=== PATIENT | male | born 1950 | race Caucasian/White ===

== ENCOUNTER 2018-11-08 15:17 | Emergency (ER) | payer OTHER, MEDICARE ==
--- NOTE | 2018-11-08 15:48 | ER Document Report ---
ED Medical Screen (RME) - General Chief Complaint: Leg Injury Stated Complaint: RIGHT LEG PAIN Time Seen by Provider: 11/08/18 15:31 Mode of Arrival: Ambulatory Information source: Patient Notes: This 68-year-old male presents with right lower leg pain and swelling and ecchymosis. He reports on Friday he was walking backwards at work carrying some furniture when he fell in the furniture and landed on his leg. Patient is on Aggrastat for history of a stroke. Patient right lower leg has an area of swelling to palpate warmth, leg is warmer than the left leg with ecchymosis to his foot. Patient reports sharp pains when he walks. Patient has large varicose veins I have greeted and performed a rapid initial assessment of this patient. A comprehensive ED assessment and evaluation of the patient, analysis of test results and completion of the medical decision making process will be conducted by additional ED providers. Dictation of this chart was performed using voice recognition software; therefore, there may be some unintended grammatical errors. TRAVEL OUTSIDE OF THE [place] IN LAST 30 DAYS: No - Related Data Allergies/Adverse Reactions: Sulfa (Sulfonamide Antibiotics) Allergy (Unknown, Verified 11/08/18 15:18) ? childhood reaction Past Medical History - Social History Frequency of alcohol use: None Drug Abuse: None - Past Medical History Cardiac Medical History: Reports: Hx Hypercholesterolemia, Hx Hypertension, Hx Heart Murmur Denies: Hx Congestive Heart Failure, Hx Heart Attack Pulmonary Medical History: Denies: Hx Asthma, Hx Bronchitis, Hx COPD, Hx Pneumonia, Hx Tuberculosis Neurological Medical History: Reports: Hx Cerebrovascular Accident - 2007 syncopal episode. 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 blockage. Denies: Hx Seizures Renal/ Medical History: Denies: Hx Benign Prostatic Hyperplasia, Hx End Stage Renal Disease, Hx Kidney Stones, Hx Peritoneal Dialysis GI Medical History: Denies: Hx Cirrhosis, Hx Gastroesophageal Reflux Disease, Hx Hepatitis, Hx Ulcer Musculoskeltal Medical History: Denies Hx Arthritis, Denies Hx Multiple Sclerosis Psychiatric Medical History: Denies: Hx Bipolar Disorder, Hx Depression, Hx Schizophrenia Infectious Medical History: Denies: Hx Hepatitis Past Surgical History: Reports: Hx Orthopedic Surgery - left hand. Denies: Hx Appendectomy, Hx Bowel Surgery, Hx Cholecystectomy, Hx Coronary Artery Bypass Graft, Hx Gastric Bypass Surgery, Hx Herniorrhaphy, Hx Pacemaker, Hx Tonsillectomy Physical Exam - Vital signs Vitals: Temp Pulse Resp BP Pulse Ox 98.2 F 71 18 146/69 H 97 11/08/18 15:28 11/08/18 15:28 11/08/18 15:28 11/08/18 15:28 11/08/18 15:28 Course - Vital Signs Vital signs: Temp Pulse Resp BP Pulse Ox 98.2 F 71 18 146/69 H 97 11/08/18 15:28 11/08/18 15:28 11/08/18 15:28 11/08/18 15:28 11/08/18 15:28
[2018-11-08 16:22] LABS: ABSOLUTE EOSINOPHILS # (AUTO) 0.2 10^3/uL (0.0-0.6); ABSOLUTE LYMPHOCYTES (AUTO) 1.3 10^3/uL (0.5-4.7); ABSOLUTE MONOCYTES (AUTO) 1.2 10^3/uL (0.1-1.4); ABSOLUTE NEUT (AUTO) 6.3 10^3/uL (1.7-8.2); BASOPHILS % (AUTO) 0.3 % (0-2); EOSINOPHILS % (AUTO) 2.5 % (0-6); HEMATOCRIT 39.7 % (37.9-51.0); HEMOGLOBIN 13.8 g/dL (13.5-17.0); LYMPHOCYTES % (AUTO) 14.1 % (13-45); MEAN CORPUSCULAR HEMOGLOBIN 32.2 pg (27.0-33.4); MEAN CORPUSCULAR HGB CONC 34.7 g/dL (32.0-36.0); MEAN CORPUSCULAR VOLUME 93 fl (80-97); MONOCYTES % (AUTO) 13.3 % (3-13); PLATELET COUNT 182 10^3/uL (150-450); RED BLOOD COUNT 4.27 10^6/uL (4.35-5.55); SEGMENTED NEUTROPHILS % (AUTO) 69.8 % (42-78); TOTAL CELLS COUNTED % (AUTO) 100 %; WHITE BLOOD COUNT 9.1 10^3/uL (4.0-10.5)
[2018-11-08 16:28] LABS: INTERNATIONAL RATION (INR) 0.97; PROTHROMBIN TIME 12.9 SEC (11.4-15.4)
[2018-11-08 16:38] LABS: ALKALINE PHOSPHATASE 75 U/L (38-126); ANION GAP 7 (5-19); ASPARTATE AMINO TRANSFERASE 28 U/L (17-59); BILIRUBIN,DIRECT 0.2 mg/dL (0.0-0.4); BILIRUBIN,TOTAL 1.1 mg/dL (0.2-1.3); BLOOD UREA NITROGEN 12 mg/dL (7-20); CALCIUM 8.6 mg/dL (8.4-10.2); CARBON DIOXIDE 26 mmol/L (22-30); CHLORIDE 98 mmol/L (98-107); GLUCOSE 96 mg/dL (75-110); POTASSIUM 4.3 mmol/L (3.6-5.0); TOTAL PROTEIN 6.3 g/dL (6.3-8.2)
--- NOTE | 2018-11-08 16:52 | RADIOLOGY REPORT (SQ) ---
EXAM DESCRIPTION: TIBIA FIBULA RIGHT COMPLETED DATE/TIME: 11/08/2018 4:30 pm REASON FOR STUDY: pain, swelling,furniture fell on leg COMPARISON: None. NUMBER OF VIEWS: Two views. TECHNIQUE: Two radiographic images acquired of the right tibia and fibula to include the knee and an kle in at least one projection. LIMITATIONS: None. FINDINGS: MINERALIZATION: Normal. BONES: No acute fracture or dislocation. No worrisome bone lesions. SOFT TISSUES: No obvious swelling or foreign body. OTHER: No other significant finding. IMPRESSION: NEGATIVE STUDY OF THE RIGHT TIBIA AND FIBULA. NO RADIOGRAPHIC EVIDENCE OF ACUTE INJURY. TECHNICAL DOCUMENTATION: JOB ID: [id number] [employer] All Rights Reserved Reading location - IP/workstation name: [email or web address]
--- NOTE | 2018-11-08 16:52 | RADIOLOGY REPORT (SQ) ---
EXAM DESCRIPTION: FOOT RIGHT 2 VIEWS COMPLETED DATE/TIME: 11/08/2018 4:29 pm REASON FOR STUDY: pain, swelling,furniture fell on leg COMPARISON: None. NUMBER OF VIEWS: Two views. TECHNIQUE: AP and lateral radiographic images acquired of the right foot. LIMITATIONS: None. FINDINGS: MINERALIZATION: Normal. BONES: No acute fracture or dislocation. Plantar calcaneal spur. No worrisome bone lesions. JOINTS: No effusions. SOFT TISSUES: No soft tissue swelling. No foreign body. OTHER: No other significant finding. IMPRESSION: HEEL SPUR. NO RADIOGRAPHIC EVIDENCE OF ACUTE INJURY. TECHNICAL DOCUMENTATION: JOB ID: [id number] [employer]- All Rights Reserved Reading location - IP/workstation name: [email or web address]
--- NOTE | 2018-11-08 20:12 | ER Document Report ---
ED Extremity Problem, Lower - General Chief Complaint: Leg Injury Stated Complaint: RIGHT LEG PAIN Time Seen by Provider: 11/08/18 15:31 [facility]: [facility] [[facility] - Follow up as needed Mode of Arrival: Ambulatory Notes: This is a pleasant 68-year-old male to the emergency department for evaluation of leg pain and swelling. Patient states that he was helping somebody move a couch. Was walking backwards when he tripped. The couch landed on his leg on the right lower extremity. Had immediate pain but was able to walk on it. The swelling has gotten worse over the last several days. Here for evaluation. Denies any shortness of breath. Patient is currently on Aggrenox status post stroke. TRAVEL OUTSIDE OF THE [place] IN LAST 30 DAYS: No - HPI Patient complains to provider of: Pain, Swelling Where: Home Severity: Moderate Pain Level: 2 - Related Data Allergies/Adverse Reactions: Sulfa (Sulfonamide Antibiotics) Allergy (Unknown, Verified 11/08/18 15:18) ? childhood reaction Past Medical History - General Information source: Patient - Social History Smoking Status: Former Smoker Cigarette use (# per day): No Frequency of alcohol use: None Drug Abuse: None Lives with: Family Family History: Reviewed & Not Pertinent Patient has suicidal ideation: No Patient has homicidal ideation: No - Past Medical History Cardiac Medical History: Reports: Hx Hypercholesterolemia, Hx Hypertension, Hx Heart Murmur Denies: Hx Congestive Heart Failure, Hx Heart Attack Pulmonary Medical History: Denies: Hx Asthma, Hx Bronchitis, Hx COPD, Hx Pneumonia, Hx Tuberculosis Neurological Medical History: Reports: Hx Cerebrovascular Accident - 2007 syncopal episode. 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 blockage. Denies: Hx Seizures Renal/ Medical History: Denies: Hx Benign Prostatic Hyperplasia, Hx End Stage Renal Disease, Hx Kidney Stones, Hx Peritoneal Dialysis GI Medical History: Denies: Hx Cirrhosis, Hx Gastroesophageal Reflux Disease, Hx Hepatitis, Hx Ulcer Musculoskeletal Medical History: Denies Hx Arthritis, Denies Hx Multiple Sclerosis Psychiatric Medical History: Denies: Hx Bipolar Disorder, Hx Depression, Hx Schizophrenia Infectious Medical History: Denies: Hx Hepatitis Past Surgical History: Reports: Hx Orthopedic Surgery - left hand. Denies: Hx Appendectomy, Hx Bowel Surgery, Hx Cholecystectomy, Hx Coronary Artery Bypass Graft, Hx Gastric Bypass Surgery, Hx Herniorrhaphy, Hx Pacemaker, Hx Tonsillectomy Review of Systems - Review of Systems Notes: Constitutional: denies: Chills, Diaphoresis, Fever, Malaise, Weakness EENT: denies: Eye discharge, Blurred vision, Tearing, Double vision, Nose congestion, Nose discharge, Throat swelling, Mouth pain Cardiovascular: denies: Palpitations, Heart racing, Orthopnea, Dyspnea, Chest pain Respiratory: denies: Cough, Hurts to breathe, Wheezing, Shortness of breath Gastrointestinal: denies: Abdominal pain, Diarrhea, Nausea, Vomiting, Black stools, bright red blood in stool Genitourinary: denies: Burning, Dysuria, Discharge, Frequency, Flank pain, Hematuria Musculoskeletal: Right lower extremity swelling, calf pain, foot swelling and foot pain. No numbness. Hematologic/Lymphatic: denies: Anemia, +Easy bleeding, +Easy bruising, -Blood clots Neurological/Psychological: denies: Confusion, Dementia, Depression, Loss of consciousness Skin: No lesions, no masses, no skin breakdown, no abscesses Physical Exam - Vital signs Vitals: Temp Pulse Resp BP Pulse Ox 98.2 F 71 18 146/69 H 97 11/08/18 15:28 11/08/18 15:28 11/08/18 15:28 11/08/18 15:28 11/08/18 15:28 Interpretation: Normal - General General appearance: Appears well, Alert - HEENT Head: Normocephalic, Atraumatic Eyes: Normal Pupils: PERRL - Respiratory Respiratory status: No respiratory distress Chest status: Nontender Breath sounds: Normal Chest palpation: Normal - Cardiovascular Rhythm: Regular Heart sounds: Normal auscultation Murmur: No - Abdominal Inspection: Normal Distension: No distension Bowel sounds: Normal Tenderness: Nontender Organomegaly: No organomegaly - Back Back: Normal, Nontender - Extremities General upper extremity: Normal inspection, Nontender, Normal color, Normal ROM, Normal temperature General lower extremity: Other - Eft lower extremity is normal. Right lower extremity demonstrates a hematoma on the right lateral lower extremity fibula area midshaft. There is bruising noted around the ankle and foot. There are bounding pulses at the dorsalis pedis and posterior tibialis on the affected right lower extremity.. No: Iva's sign Left calf in cm: 34 Right calf in cm: 37 - Neurological Neuro grossly intact: Yes Cognition: Normal Orientation: AAOx4 Cheyanne Coma Scale Eye Opening: Spontaneous [place]yanne Coma Scale Verbal: Oriented Cheyanne Coma Scale Motor: Obeys Commands Cheyanne Coma Scale Total: 15 Speech: Normal Motor strength normal: LUE, RUE, LLE, RLE Sensory: Normal - Psychological Associated symptoms: Normal affect, Normal mood - Skin Skin Temperature: Warm Skin Moisture: Dry Skin Color: Normal Course - Re-evaluation Re-evalutation: 11/08/18 20:11 Laboratory 11/08/18 11/08/18 11/08/18 16:10 16:10 16:10 WBC 9.1 RBC 4.27 L Hgb 13.8 Hct 39.7 MCV 93 MCH 32.2 MCHC 34.7 RDW 13.0 Plt Count 182 Seg Neutrophils % 69.8 Lymphocytes % 14.1 Monocytes % 13.3 H Eosinophils % 2.5 Basophils % 0.3 Absolute Neutrophils 6.3 Absolute Lymphocytes 1.3 Absolute Monocytes 1.2 Absolute Eosinophils 0.2 Absolute Basophils 0.0 PT 12.9 INR 0.97 APTT 26.0 Sodium 131.3 L Potassium 4.3 Chloride 98 Carbon Dioxide 26 Anion Gap 7 BUN 12 Creatinine 0.67 Est GFR ( Amer) > 60 Est GFR (Non-Af Amer) > 60 Glucose 96 Calcium 8.6 Total Bilirubin 1.1 Direct Bilirubin 0.2 Neonat Total Bilirubin Not Reportable Neonat Direct Bilirubin Not Reportable Neonat Indirect Bili Not Reportable AST 28 ALT 20 Alkaline Phosphatase 75 Total Protein 6.3 Albumin 4.0 Foot X-Ray 11/08/18 15:44 IMPRESSION: HEEL SPUR. NO RADIOGRAPHIC EVIDENCE OF ACUTE INJURY. Tibia/Fibula X-Ray 11/08/18 15:44 IMPRESSION: NEGATIVE STUDY OF THE RIGHT TIBIA AND FIBULA. NO RADIOGRAPHIC EVIDENCE OF ACUTE INJURY. Ultrasound: Informal results negative for DVT. Hematoma was present. - Vital Signs Vital signs: Temp Pulse Resp BP Pulse Ox 98.2 F 71 18 146/69 H 97 11/08/18 15:28 11/08/18 15:28 11/08/18 15:28 11/08/18 15:28 11/08/18 15:28 - Laboratory Result Diagrams: 11/08/18 16:10 11/08/18 16:10 Laboratory results interpreted by me: 11/08/18 11/08/18 16:10 16:10 RBC 4.27 L Monocytes % 13.3 H Sodium 131.3 L Discharge - Discharge Clinical Impression: Hematoma of lower extremity Qualifiers: Encounter type: initial encounter Laterality: right Qualified Code(s): S80.11XA - Contusion of right lower leg, initial encounter Condition: Good Disposition: HOME, SELF-CARE Instructions: Hematoma ([facility]) Additional Instructions: Follow-up with your regular doctor. There is no evidence of a blood clot or fracture. The hematoma will eventually resolve but the blue resume will be present for around 1 month. This is normal. In the event you develop worsening pain, worsening swelling, numbness to your foot, numbness to your leg or any other concerns please return to the emergency department we will be happy to reevaluate you. You need to take all of your regular medications Referrals: [facility] [Primary Care Provider] - Follow up as needed
[2018-11-08 20:20] VITALS: BP 139/86
--- NOTE | 2018-11-09 09:37 | XCELERA REPORT ---
[address] [place] [facility] [place] [address] Lower Extremity Venous Evaluation Procedure: Color flow and duplex imaging of the veins of the right lower extremity as well as the left Common Femoral vein. Right Sided Venous Evaluation Normal vessel filling wall to wall, compression and augmentation as well as Colour flow down to the infrageniculate veins. Left Sided Venous Evaluation The left common femoral vein is fully compressible. Spontaneous and phasic flow is present in the left common femoral vein. Interpretation Summary No duplex evidence of DVT or obstruction in the right lower extremity nor in the left Common Femoral vein. Name: BK SAENZ Age: 68 yrs Gender: Male : 1950 Patient Status: Emergency Patient Location: ER Study Date: 11/08/2018 07:48 PM Reason For Study: pain, swelling, furniture fell on leg Ordering Physician: JOSE STEWARD Performed By: Mohamud Elder : JOSE STEWARD > Rudi Silva
== END 2018-11-08 20:19 | disposition home or self-care (01) ==
LOC: ER 15:17
DX: S80.11XA Contusion of right lower leg, initial encounter (principal); W18.49XA Other slipping, tripping and stumbling without falling, initial encounter; Y93.89 Activity, other specified; Y92.009 Unspecified place in unspecified non-institutional (private) residence as the place of occurrence of the external cause; M79.604 Pain in right leg; E78.00 Pure hypercholesterolemia, unspecified; I10 Essential (primary) hypertension; Z88.2 Allergy status to sulfonamides
CPT/HCPCS: 36415; 80053; 85025; 85610; 85730; 93971; 99284

== ENCOUNTER 2018-12-26 08:49 | Emergency (ER) | payer OTHER, MEDICARE ==
--- NOTE | 2018-12-26 09:41 | ER Document Report ---
HPI - HPI Time Seen by Provider: 12/26/18 09:22 Pain Level: 5 Notes: Patient is a 68-year-old male presents emergency department with chief complaint of left rib pain. Patient reports yesterday while he was at work he was walking and fell landing on the ground. He reports pain to left anterior ribs. He denies any shortness of breath but does report increased pain when he takes a deep breath. He denies any other injuries, denies striking his head, denies any loss of consciousness. - CONSTITUTIONAL Constitutional: DENIES: Fever, Chills - REPRODUCTIVE Reproductive: DENIES: : - MUSCULOSKELETAL Musculoskeletal: REPORTS: Extremity pain Past Medical History - General Information source: Patient - Social History Smoking Status: Never Smoker Chew tobacco use (# tins/day): No Frequency of alcohol use: None Drug Abuse: None Family History: Reviewed & Not Pertinent Patient has suicidal ideation: No Patient has homicidal ideation: No - Past Medical History Cardiac Medical History: Reports: Hx Hypercholesterolemia, Hx Hypertension, Hx Heart Murmur Denies: Hx Congestive Heart Failure, Hx Heart Attack Pulmonary Medical History: Denies: Hx Asthma, Hx Bronchitis, Hx COPD, Hx Pneumonia, Hx Tuberculosis Neurological Medical History: Reports: Hx Cerebrovascular Accident - 2007 syncopal episode. 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 blockage. Denies: Hx Seizures Renal/ Medical History: Denies: Hx Benign Prostatic Hyperplasia, Hx End Stage Renal Disease, Hx Kidney Stones, Hx Peritoneal Dialysis GI Medical History: Denies: Hx Cirrhosis, Hx Gastroesophageal Reflux Disease, Hx Hepatitis, Hx Ulcer Musculoskeletal Medical History: Denies Hx Arthritis, Denies Hx Multiple Sclerosis Psychiatric Medical History: Denies: Hx Bipolar Disorder, Hx Depression, Hx Schizophrenia Infectious Medical History: Denies: Hx Hepatitis Past Surgical History: Reports: Hx Orthopedic Surgery - left hand. Denies: Hx Appendectomy, Hx Bowel Surgery, Hx Cholecystectomy, Hx Coronary Artery Bypass Graft, Hx Gastric Bypass Surgery, Hx Herniorrhaphy, Hx Pacemaker, Hx Tonsillectomy Vertical Provider Document - CONSTITUTIONAL Notes: PHYSICAL EXAMINATION: GENERAL: Well-appearing, well-nourished and in no acute distress. HEAD: Atraumatic, normocephalic. EYES: Pupils equal round extraocular movements intact, conjunctiva are normal. ENT: Nares patent NECK: Normal range of motion LUNGS: No respiratory distress, lung sounds clear and equal bilaterally, equal expansion of chest. Musculoskeletal: Normal range of motion, tenderness to palpation over left anterior lower ribs, no crepitus or deformity on palpation. NEUROLOGICAL: Normal speech, normal gait. PSYCH: Normal mood, normal affect. SKIN: Warm, Dry, normal turgor, no rashes or lesions noted. - INFECTION CONTROL TRAVEL OUTSIDE OF THE [place] IN LAST 30 DAYS: No Course - Re-evaluation Re-evalutation: Laboratory 12/26/18 12/26/18 10:50 10:50 WBC 9.4 RBC 4.69 Hgb 15.2 Hct 43.3 MCV 92 MCH 32.4 MCHC 35.1 RDW 12.9 Plt Count 187 Lymph % (Auto) 9.5 L Bowie % (Auto) 10.3 Eos % (Auto) 1.2 Baso % (Auto) 0.3 Absolute Neuts (auto) 7.4 Absolute Lymphs (auto) 0.9 Absolute Monos (auto) 1.0 Absolute Eos (auto) 0.1 Absolute Basos (auto) 0.0 Seg Neutrophils % 78.7 H Sodium 132.1 L Potassium 4.6 Chloride 93 L Carbon Dioxide 28 Anion Gap 11 BUN 13 Creatinine 0.72 Est GFR ( Amer) > 60 Est GFR (MDRD) Non-Af > 60 Glucose 99 Calcium 9.5 Total Bilirubin 0.9 Direct Bilirubin 0.1 Neonat Total Bilirubin Not Reportable Neonat Direct Bilirubin Not Reportable Neonat Indirect Bili Not Reportable AST 34 ALT 24 Alkaline Phosphatase 82 Total Protein 6.8 Albumin 4.5 Ribs w/Chest X-Ray 12/26/18 09:28 IMPRESSION: Findings consistent with fractures of anterior left 8th, 9th, and 10th ribs were a old healed fractures left posterior 5th and 6th ribs. Chest CT 12/26/18 10:29 IMPRESSION: No acute findings over the chest or abdomen to explain history of left-sided pain. Bibasilar atelectasis. Calcified aortic valve. Right lower pole thyroid nodule. Abdomen CT 12/26/18 10:30 IMPRESSION: No acute findings over the chest or abdomen to explain history of left-sided pain. Bibasilar atelectasis. Calcified aortic valve. Right lower pole thyroid nodul e. Radiology reports show fractures of the anterior left eighth ninth and 10th ribs. No evidence of pneumothorax. Patient has not had any hypoxia, tachypnea or tachycardia. He appears well. He will be discharged home with an incentive spirometer and close follow-up. Patient understands ED return precautions as outlined in his discharge instructions. The patient's emergency department workup and current diagnosis were explained to the patient and or family. Follow-up instructions were provided. Medications if prescribed were discussed. Instructions for when to return to the emergency department including specific worrisome symptoms were discussed with the patient and/or family. - Vital Signs Vital signs: Temp Pulse Resp BP Pulse Ox 97.6 F 68 16 168/62 H 99 12/26/18 08:54 12/26/18 08:54 12/26/18 08:54 12/26/18 08:54 12/26/18 08:54 - Laboratory Result Diagrams: 12/26/18 10:50 12/26/18 10:50 Discharge - Discharge Clinical Impression: Rib fractures Qualifiers: Encounter type: initial encounter Rib fracture type: multiple ribs Fracture t ype: closed Laterality: left Qualified Code(s): S22.42XA - Multiple fractures of ribs, left side, initial encounter for closed fracture Condition: Stable Disposition: HOME, SELF-CARE Additional Instructions: Rib Injuries and Fractures You have been diagnosed as having either bruised or broken ribs. These two injuries are treated in the same way. It will usually take four to six weeks for these injured ribs to heal. Sometimes, rib belts or anesthetic injections of the chest wall help reduce the pain. If you are using a rib belt, you should cough or take a deep breath at least every hour or two to prevent lung complications. You should not engage in any strenuous physical activity until released by your physician. The usual rule is "if it hurts, don't do it." Rib fractures can lead to serious lung complications including lung co llapse, hemorrhage, and pneumonia. You should call the physician or return at once if any of the following occur: (1) Fever or chills. (2) Persistent cough, coughing up blood, or shortness of breath. (3) Increasing pain. (4) Weakness, lightheadedness, or fainting. Please use the incentive spirometry at least 6x per day. Take pain medications as prescribed. Follow up with your primary care provider in 3-5 days. Prescriptions: Hydrocodone Bit/Acetaminophen [Hydrocodon-Acetaminophen 5-325] 1 each PO Q4H #15 tablet Forms: Special Work Note Referrals: [facility] [[facility]] - Follow up as needed
--- NOTE | 2018-12-26 10:12 | RADIOLOGY REPORT (SQ) ---
EXAM DESCRIPTION: RIBS LEFT W/PA CHEST COMPLETED DATE/TIME: 12/26/2018 9:55 am REASON FOR STUDY: Ground-level fall, left anterior rib pain COMPARISON: None. TECHNIQUE: Frontal view of the chest and additional views of the left ribs acquired. NUMBER OF VIEWS: PA chest. Three-view rib detail. LIMITATIONS: None. FINDINGS: FRONTAL CXR: No pneumothorax. No pleural effusion. No atelectasis or infiltrates. RIBS: There are old fractures of the the left posterior 5th and 6th ribs. There is irregularity of t he cortex of the anterior left 8th, 9th and 10th ribs. The possibility of nondisplaced fractures is not excluded. OTHER: No other significant finding. IMPRESSION: Findings consistent with fractures of anterior left 8th, 9th, and 10th ribs were a old healed fractures left posterior 5th and 6th ribs. TECHNICAL DOCUMENTATION: JOB ID: [id number] [employer]- All Rights Reserved Reading location - IP/workstation name: [email or web address]
[2018-12-26 11:04] LABS: ABSOLUTE EOSINOPHILS # (AUTO) 0.1 10^3/uL (0.0-0.6); ABSOLUTE LYMPHOCYTES (AUTO) 0.9 10^3/uL (0.5-4.7); ABSOLUTE NEUT (AUTO) 7.4 10^3/uL (1.7-8.2); BASOPHILS % (AUTO) 0.3 % (0-2); EOSINOPHILS % (AUTO) 1.2 % (0-6); HEMATOCRIT 43.3 % (37.9-51.0); HEMOGLOBIN 15.2 g/dL (13.5-17.0); LYMPHOCYTES % (AUTO) 9.5 % (13-45); MEAN CORPUSCULAR HEMOGLOBIN 32.4 pg (27.0-33.4); MEAN CORPUSCULAR HGB CONC 35.1 g/dL (32.0-36.0); MEAN CORPUSCULAR VOLUME 92 fl (80-97); MONOCYTES % (AUTO) 10.3 % (3-13); PLATELET COUNT 187 10^3/uL (150-450); RED BLOOD COUNT 4.69 10^6/uL (4.35-5.55); RED CELL DISTRIBUTION WIDTH 12.9 % (11.5-14.0); SEGMENTED NEUTROPHILS % (AUTO) 78.7 % (42-78); TOTAL CELLS COUNTED % (AUTO) 100 %; WHITE BLOOD COUNT 9.4 10^3/uL (4.0-10.5)
[2018-12-26 11:20] LABS: ALBUMIN 4.5 g/dL (3.5-5.0); ALKALINE PHOSPHATASE 82 U/L (38-126); ANION GAP 11 (5-19); ASPARTATE AMINO TRANSFERASE 34 U/L (17-59); BILIRUBIN,DIRECT 0.1 mg/dL (0.0-0.4); BILIRUBIN,TOTAL 0.9 mg/dL (0.2-1.3); BLOOD UREA NITROGEN 13 mg/dL (7-20); CALCIUM 9.5 mg/dL (8.4-10.2); CARBON DIOXIDE 28 mmol/L (22-30); CHLORIDE 93 mmol/L (98-107); GLUCOSE 99 mg/dL (75-110); POTASSIUM 4.6 mmol/L (3.6-5.0); TOTAL PROTEIN 6.8 g/dL (6.3-8.2)
[2018-12-26] MEDS ORDERED: IBUPROFEN 600 MG TABLET PO ONE (12:10)
--- NOTE | 2018-12-26 12:20 | RADIOLOGY REPORT (SQ) ---
EXAM DESCRIPTION: CT CHEST WITH; CT ABDOMEN IV CONTRAST ONLY COMPLETED DATE/TIME: 12/26/2018 12:02 pm; 12/26/2018 12:01 pm REASON FOR STUDY: LUQ pain RENAL FUNCTION: Creatinine 0.7 COMPARISON: Left rib films 12/26/2018 CONTRAST TYPE AND DOSE: contrast/concentration: Isovue 350.00 mg/ml; Total Contrast Delivered: 75.0 ml; Total Saline Delivered: 54.4 ml TECHNIQUE: CT scan of the chest performed using helical scanning technique with dynamic intravenous contrast injection. Images reviewed with lung, soft tissue and bone windows. Reconstructed coronal a nd sagittal MPR images reviewed. All images stored on PACS. CT scan of the abdomen performed with intravenous and without oral contrastusing helical scanning bobby hnique with dynamic intravenous contrast injection. Images reviewed with lung, soft tissue and bone windows. Reconstructed coronal and sagittal MPR images reviewed. Delayed images for evaluation of t he urinary system also acquired and evaluated. All images stored on PACS. All CT scanners at this facility use dose modulation, iterative reconstruction, and/or weight based d osing when appropriate to reduce radiation dose to as low as reasonably achievable (ALARA). [facility]: Dose Right [facility]: CareDose [facility]: Dose Right [facility]: Teradose 4D [facility]: Smart [employer] CT scan of the chest performed using helical scanning technique with dynamic intravenous contrast inj ection. Images reviewed with lung, soft tissue and bone windows. Reconstructed coronal and sagittal MPR and MIP images reviewed. All images stored on PACS. RADIATION DOSE: CT Rad equipment meets quality standard of care and radiation dose reduction techniq ues were employed. CTDIvol: 9.8 mGy. DLP: 489 mGy-cm. . LIMITATIONS: None. FINDINGS: CHEST: LUNGS AND PLEURA: Bibasilar bandlike atelectasis is present in the posterior costophrenic sulci no fl uffy alveolar infiltrates worrisome for edema or pneumonia. No pleural effusion. No pneumothorax. . HILAR AND MEDIASTINAL STRUCTURES: No identified masses or abnormal nodes. HEART AND VASCULAR STRUCTURES: No aneurysm or dissection. No central pulmonary emboli. No pericardi al effusion. Very heavily calcified aortic valve, mitral annulus, moderate calcification coronary ar teries. HARDWARE: None. THYROID AND OTHER SOFT TISSUES: 3 cm mass right lower pole thyroid for which dedicated thyroid ultras ound is recommended as an outpatient follow-up. BONES: No significant finding. OTHER: No other significant finding. ABDOMEN AND PELVIS: LIVER: Normal size. No masses. No dilated ducts. SPLEEN: Normal size. No focal lesions. PANCREAS: No masses. No significant calcifications. No adjacent inflammation or peripancreatic fluid collections. Pancreatic duct not dilated. GALLBLADDER: No identified stones by CT criteria. No inflammatory changes to suggest cholecystitis. ADRENAL GLANDS: No significant masses or asymmetry. RIGHT KIDNEY AND URETER: No solid masses. No significant calcification. No hydronephrosis or hydroure ter. LEFT KIDNEY AND URETER: No solid masses. No significant calcification. No hydronephrosis or hydrouret er. AORTA AND VESSELS: No aneurysm. No dissection. Renal arteries, SMA, celiac without stenosis. RETROPERITONEUM: No retroperitoneal adenopathy, hemorrhage or masses. BOWEL AND PERITONEAL CAVITY: No masses or inflammatory changes. No free fluid or peritoneal masses. APPENDIX: Normal. ABDOMINAL WALL: No masses. No hernias. BONES: No significant or acute findings. OTHER: No other significant finding. IMPRESSION: No acute findings over the chest or abdomen to explain history of left-sided pain. Bibasilar atelectasis. Calcified aortic valve. Right lower pole thyroid nodule. TECHNICAL DOCUMENTATION: JOB ID: [id number] Quality ID # 436: Final reports with documentation of one or more dose reduction techniques (e.g., Au tomated exposure control, adjustment of the mA and/or kV according to patient size, use of iterative reconstruction technique) 2010 [employer]- All Rights Reserved Reading location - IP/workstation name: [email or web address]
[2018-12-26 13:21] VITALS: BP 123/58
== END 2018-12-26 13:32 | disposition home or self-care (01) ==
LOC: ER 08:49
DX: S22.42XA Multiple fractures of ribs, left side, initial encounter for closed fracture (principal); W19.XXXA Unspecified fall, initial encounter; Y99.0 Civilian activity done for income or pay; R07.81 Pleurodynia; J98.11 Atelectasis; I10 Essential (primary) hypertension; E04.1 Nontoxic single thyroid nodule; I70.0 Atherosclerosis of aorta
CPT/HCPCS: 36415; 71260; 74160; 80053; 85025; 99284

== ENCOUNTER 2019-03-18 13:18 | Day surgery (SDC) | payer MEDICARE, OTHER ==
[~2019-03-18 13:18] MED LIST: BESIFLOXACIN HCL 0.6% OPH SUSP 5 ML BOTTLE OS PRN; BUPIVACAINE HCL 0.75% INJ/PF (7.5 MG/1 ML) 10 ML SDV OS PRN; CHONDR SU A NA/HYALUR INTRAOC KIT (SURGICARE) ONE; CYCLOPENTOLATE 0.2%/PHENYLEPHRINE 1% OPH SOLN 2 ML OS PRN; DORZOLAMIDE HCL 2%/TIMOLOL MALEAT 0.5% OPH SOLN 10 ML OS PRN; EPINEPHRINE INJ/PF 1 MG/1 ML AMPULE ONE; KETOROLAC TROMETHAMINE 0.45% 4 DROP/0.4 ML DROPERETTE OS PRN; LIDOCAINE 1% INJ-PF (10 MG/ML) 30 ML SDV ONE; LIDOCAINE 4% INJ/PF (40 MG/ML) 5 ML AMPUL OS PRN; TROPICAMIDE 1% OPH SOLN 15 ML OS PRN
[2019-03-18] MEDS: TROPICAMIDE 1% OPH SOLN 15 ML OS PRN ×2 (14:55→15:10)
[2019-03-18] MEDS: TETRACAINE HCL 0.5% OPH SOLN 4 ML OS PRN ×3 (14:55→15:12)
[2019-03-18] MEDS: BESIFLOXACIN HCL 0.6% OPH SUSP 5 ML BOTTLE OS PRN ×4 (14:56→16:05)
[2019-03-18] MEDS ORDERED: MIDAZOLAM 2 MG/2 ML INJ ONE (14:59)
[2019-03-18] MEDS ORDERED: EPINEPHRINE INJ/PF 1 MG/1 ML AMPULE ONE (15:48)
[2019-03-18] MEDS: DORZOLAMIDE HCL 2%/TIMOLOL MALEAT 0.5% OPH SOLN 10 ML OS PRN ×2 (16:05)
--- NOTE | 2019-03-19 23:37 | Operative Report ---
Operative Report-[facility] Operative Report: PREOPERATIVE DIAGNOSIS: Nuclear, cortical and posterior subcapsular cataract, left eye POSTOPERATIVE DIAGNOSIS: Nuclear, cortical and posterior subcapsular cataracts, left eye PROCEDURE: Phacoemulsification and posterior chamber intraocular lens implant, left eye PROCEDURE DATE: [February 18, 2019] SURGEON: Darrel Burnham MD Next CARPENTER ASSEMBLER: [Shahida] ANESTHESIA: Topical with IV sedation next COMPLICATIONS: None TISSUE TO PATHOLOGY: None ESTIMATED BLOOD LOSS: None INDICATION FOR SURGERY: [Mr. Frazier is a 79 year old male] Who presents to our clinic complaining of difficulty seeing, to read and drive due to blurry vision in both eyes. On examination, she was found to have best corrected visual acuity of [20/50] in the left eye. Ophthalmoscopy revealed a [2+] nuclear, [2+] corneal degeneration, [trace] posterior subcapsular cataract in the left eye with normal appearing cornea, vitreous, retina and optic nerve. I discussed the findings of the exam with the patient. We discussed the risks, benefits and alternatives of cataract extraction and intraocular lens implant in the left eye as a means of improving her vision. Risks that were discussed with the patient include infection, bleeding, retinal detachment and possible need for addimtional surgery. The patient understands that she may need to wear glasses after surgery. After discussion, the patient indicated her interest in having this procedure performed by signing an informed witness consent form. REPORT OF PROCEDURE: On the day of surgery, the patient was given a topical application to the left eye to consist of drop of Tetracaine 0.5%, tropicamide 1%, Cyclomidril, Besivance 0.6% and Acular 0.45%. The patient was then taken to the operating room in a supine position in a standard eye bed. Intravenous sedation was administered and she was prepped and draped in the standard fashion. A timeout was performed to confirm the surgical site. Attention was directed to the left eye where a paracentesis was created at the 5:30 position at the corneal limbus with a 15 degree blade. The anterior chamber was filled with 0.3 mL of 1% methylparaben free lidocaine and after 30 seconds the anterior chamber was filled with viscoelastic material. A 3 plane corneal incision was then made at the 3 o'clock position at the cornea limbus with a keratome. A continuous curvilinear capsulorrhexis was then made in the anterior capsule of the lens with a cystotome. The lens was hydrodissected using balanced saline solution. The lens nucleus was then removed by phacoemulsification using the stop and chop technique. CDE [7.67 ]. The remaining cortical material was then removed from the posterior capsular bag using irrigation and aspiration. The posterior capsule bag was filled with viscoelastic material and a lens implant was inserted into the posterior capsule bag. I have chosen for this case is a one piece acrylic lens from [employer] model [[id number]], serial number [[id number]], lens power [20.0]. The lens was removed from its package, inspected and found to be free of defects it was loaded into a Howes D fringe weaver. The fringe weaver was passed through the temporal wound and the lens was advanced into the posterior capsular bag. The lens implant was centered in the posterior capsular bag with the [place] spatula the viscoelastic material was removed from the eye using irrigation and aspiration. The wounds were closed by stromal hydration and they were tested with the Weck-Terrie sponges and found to have no leaks. Intraocular pressure was assessed by manual palpitation found to be with in the physiologic range. The drape and speculum were removed. Drops of Durezol, Combigan and gatifloxacin were instilled in the left eye. The patient was then taken to the recovery room in good condition. The patient tolerated the procedure very well. The patient was given a prescription for gatifloxacin, Durezol and Ilervo to use every 2 hours while awake today. She will return my clinic tomorrow for follow-up evaluation.
== END 2019-03-18 16:45 | disposition home or self-care (01) ==
LOC: SC 13:18
PROVIDERS: ATTEND Ophthalmology
DX: H25.812 Combined forms of age-related cataract, left eye (principal); I10 Essential (primary) hypertension; Z86.73 Personal history of transient ischemic attack (TIA), and cerebral infarction without residual deficits; Z88.2 Allergy status to sulfonamides; Z79.899 Other long term (current) drug therapy; Z87.891 Personal history of nicotine dependence
CPT/HCPCS: 66984; 00142; V2632; J2250; J3490 ×3; A9270; J0171; 142

== ENCOUNTER 2019-05-22 23:02 | Emergency (ER) | payer MEDICARE, OTHER ==
[2019-05-22] MEDS ORDERED: NORMAL SALINE 1000 ML 1,000 ML IV ONE (23:39)
[2019-05-22 23:50] LABS: HEMATOCRIT 48.3 % (37.9-51.0); HEMOGLOBIN 16.7 g/dL (13.5-17.0); MEAN CORPUSCULAR HEMOGLOBIN 32.5 pg (27.0-33.4); MEAN CORPUSCULAR HGB CONC 34.5 g/dL (32.0-36.0); MEAN CORPUSCULAR VOLUME 94 fl (80-97); PLATELET COUNT 252 10^3/uL (150-450); RED BLOOD COUNT 5.13 10^6/uL (4.35-5.55); RED CELL DISTRIBUTION WIDTH 12.9 % (11.5-14.0); WHITE BLOOD COUNT 22.3 10^3/uL (4.0-10.5)
[2019-05-23 00:07] LABS: ABSOLUTE LYMPHOCYTES# (MANUAL) 0.9 10^3/uL (0.5-4.7); ABSOLUTE MONOCYTES # (MANUAL) 1.6 10^3/uL (0.1-1.4); BAND NEUTROPHILS % (MANUAL) 5 % (3-5); BASOPHILS % (MANUAL) 0 % (0-2); EOSINOPHILS % (MANUAL) 0 % (0-6); LYMPHOCYTES % (MANUAL) 4 % (13-45); MONOCYTES % (MANUAL) 7 % (3-13); SEGMENTED NEUTROPHILS % (MAN) 84 % (42-78); TOTAL CELLS COUNTED 100
[2019-05-23 00:08] LABS: PLATELET COMMENT ADEQUATE; RBC MORPHOLOGY COMMENT NORMO-CYTIC/CHROMIC
[2019-05-23 00:21] LABS: ALKALINE PHOSPHATASE 87 U/L (38-126); ANION GAP 13 (5-19); ASPARTATE AMINO TRANSFERASE 120 U/L (17-59); BILIRUBIN,DIRECT 0.2 mg/dL (0.0-0.4); BILIRUBIN,TOTAL 1.2 mg/dL (0.2-1.3); BLOOD UREA NITROGEN 62 mg/dL (7-20); CALCIUM 9.7 mg/dL (8.4-10.2); CARBON DIOXIDE 27 mmol/L (22-30); CHLORIDE 100 mmol/L (98-107); GLUCOSE 120 mg/dL (75-110); POTASSIUM 4.9 mmol/L (3.6-5.0); TOTAL PROTEIN 6.7 g/dL (6.3-8.2)
[2019-05-23 00:23] LABS: ALCOHOL < 10 mg/dL (NONE DETECTED)
[2019-05-23 00:24] LABS: CREATINE KINASE 4715 U/L (55-170)
[2019-05-23] MEDS ORDERED: TRANEXAMIC ACID INJ/PF 1,000 MG/10 ML SDV ONE (00:30)
[2019-05-23 00:35] LABS: APPEARANCE,URINE SLIGHTLY-CLOUDY; BILIRUBIN,URINE NEGATIVE (NEGATIVE); COLOR,URINE YELLOW; GLUCOSE, URINE NEGATIVE (NEGATIVE); KETONES,URINE TRACE mg/dL (NEGATIVE); PROTEIN,URINE NEGATIVE (NEGATIVE); URINE SPECIFIC GRAVITY 1.014; UROBILINOGEN,URINE NEGATIVE mg/dL (<2.0)
[2019-05-23] MEDS ORDERED: TRANEXAMIC ACID INJ/PF 1,000 MG/10 ML SDV IV ONE (00:40)
[2019-05-23] MEDS ORDERED: LEVETIRACETAM 1000 MG/NACL-ISO 1,000 MG/100 ML RTUPB IV ONE (00:40)
[2019-05-23] MEDS ORDERED: VECURONIUM BROMIDE INJ 10 MG VIAL IV ONE ×2 (00:41→12:05)
[2019-05-23] MEDS ORDERED: LORAZEPAM INJ 2 MG/1 ML VIAL IV ONE (00:41)
--- NOTE | 2019-05-23 00:41 | RADIOLOGY REPORT (SQ) ---
EXAM DESCRIPTION: CT HEAD WITHOUT IV CONTRAST COMPLETED DATE/TME: 05/22/2019 23:35 CLINICAL HISTORY: 69 years, Male, fall, ams, neck pain COMPARISON: June 12, 2013 TECHNIQUE: Images stored on PACS. All CT scanners at this facility use dose modulation, iterative reconstruction, and/or weight based dosing when appropriate to reduce radiation dose to as low as reasonably achievable (ALARA). [facility]: Dose Right [facility]: CareDose [facility]: Dose Right [facility]: Teradose 4D [facility]: [employer] LIMITATIONS: None. FINDINGS: A focus of intraparenchymal hemorrhage is identified right periventricular. This appears be a bilobed abnormality, the larger component measuring 1.1 x 2.1 cm, series 2 image 21. There is mild regional mass effect with surrounding edema. There is also an area of low-attenuation identified peripheral to this also representing edema although this has both cytotoxic and vasogenic pattern extending into the adjacent temporal lobe. Overlying sulcal effacement. Mild effacement upon the right lateral ventricle but no significant midline shift. Encephalomalacia from a remote event right parietal. Paranasal sinuses demonstrate fluid within the left maxillary sinus. Mastoid air cells are clear. Orbits and eyeballs are unremarkable. Calvarium is intact IMPRESSION: Acute intraparenchymal hemorrhage is identified right periventricular. Surrounding vasogenic edema. Mild mass effect. Peripheral to this abnormality extending into the right temporal lobe is low attenuation consistent with edema with both a cytotoxic and vasogenic appearance. These findings were discussed personally by phone with, and an understanding was acknowledged by, Kandace Ho RN, nurse in attendance on 05/22/2019 11:39 PM LINTER OPERATOR. The attending of record was involved in urgent patient care at the time of my call TECHNICAL DOCUMENTATION: Quality ID # 436: Final reports with documentation of one or more dose reduction techniques (e.g., Automated exposure control, adjustment of the mA and/or kV according to patient size, use of iterative reconstruction technique) copyright 2011 [employer]- All Rights Reserved
[2019-05-23] MEDS ORDERED: MANNITOL 25% INJ 12.5 GM/50 ML VIAL IV ONE (00:49)
[2019-05-23] MEDS ORDERED: NORMAL SALINE 1000 ML 1,000 ML IV ONE (00:50)
[2019-05-23 01:00] LABS: URINE AMPHETAMINES SCREEN NEGATIVE; URINE BARBITURATES SCREEN NEGATIVE; URINE BENZODIAZEPINES SCREEN NEGATIVE; URINE MARIJUANA (THC) SCREEN NEGATIVE; URINE METHADONE SCREEN NEGATIVE; URINE PHENCYCLIDINE SCREEN NEGATIVE
[2019-05-23] MEDS ORDERED: SUCCINYLCHOLINE CHLORIDE INJ 200 MG/10 ML VIAL IV ONE ×2 (01:00→01:01)
[2019-05-23] MEDS ORDERED: ETOMIDATE INJ/PF 20 MG/10 ML SDV IV ONE ×3 (01:00→12:05)
--- NOTE | 2019-05-23 01:00 | ER Document Report ---
Entered by NAVEED SERRANO SCRIBE 05/22/19 6032 Acting as scribe for:VEENA HU IV, MD ED General - General Stated Complaint: FALL/NECK PAIN Time Seen by Provider: 05/22/19 23:16 Primary Care Provider: FLAQUITO CARBALLO OD [Primary Care Provider] - Follow up as needed Mode of Arrival: Medic Information source: Patient, Emergency Med Personnel Notes: This 69 year old male patient with a history of a CVA with left-sided deficits brought in by EMS presents to the ED today with complaints of fall that occurred prior to arrival. ED nurse states that HARRY were called out for a wellness check on the patient and they found him supine in the bathtub. ED nurse states that the patient may have been laying in the bathtub since approximately 1100 this morning. Patient states that he got dizzy and fell in the tub. Patient reports pain from the base of his neck on the right side down to his lower back. ED nurse notes that this is the third fall like this that the patient has had this week. ED nurse also reports a severe cough that the patient states started a cou ple of days ago. TRAVEL OUTSIDE OF THE [place] IN LAST 30 DAYS: No - Related Data Allergies/Adverse Reactions: Sulfa (Sulfonamide Antibiotics) Allergy (Unknown, Verified 03/12/19 11:16) ? childhood reaction Past Medical History - General Information source: Patient, Emergency Med Personnel, [facility] Records - Social History Smoking Status: Unknown if Ever Smoked Cigarette use (# per day): No Chew tobacco use (# tins/day): No Smoking Education Provided: No Family History: Reviewed & Not Pertinent - Past Medical History Cardiac Medical History: Reports: Hx Hypercholesterolemia, Hx Hypertension, Hx Heart Murmur Neurological Medical History: Reports: Hx Cerebrovascular Accident - 2007 syncopal episode. 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 blockage Past Surgical History: Reports: Hx Orthopedic Surgery - left hand Review of Systems - Review of Systems Constitutional: No symptoms reported EENT: No symptoms reported Cardiovascular: See HPI, Dizziness Respiratory: See HPI, Cough Gastrointestinal: No symptoms reported Genitourinary: No symptoms reported Male Genitourinary: No symptoms reported Musculoskeletal: See HPI, Back pain, Neck pain Skin: No symptoms reported Hematologic/Lymphatic: No symptoms reported Neurological/Psychological: No symptoms reported -: Yes All other systems reviewed and negative Physical Exam - Vital signs Interpretation: Tachycardic - General General appearance: Alert, Other - Urine odor - HEENT Head: Normocephalic, Atraumatic Eyes: Normal Pupils: PERRL Neck: Other - Tender to palpate in the midline of posterior cervical spine. Hard C-collar put in place. - Respiratory Respiratory status: No respiratory distress Chest status: Nontender Breath sounds: Rhonchi Chest palpation: Normal - Cardiovascular Rhythm: Tachycardia Heart sounds: Normal auscultation Murmur: No Friction rub: No Gallop: None auscultated - Abdominal Inspection: Normal Distension: No distension Bowel sounds: Normal Tenderness: Nontender Organomegaly: No organomegaly - Back Back: Other - Diffuse ecchymosis to thoracic and lumbar region of back. 3-4 cm in circumference area of ecchymosis appreciated lateral to superior gluteal crease on the left side. 2 cm skin tear appreciated lateral to superior gluteal crease on the right side.. No: Deformity/step-off - Patient was log rolled using C-spine immobilization to examine the back. No deformity or step-off appreciated in the midline of thoracic and lumbar spine. - Extremities General upper extremity: Normal inspection, Other - No deformity. General lower extremity: Normal inspection, Other - No deformity. Knee: Ecchymosis - Left knee - Neurological Neuro grossly intact: Yes [place] Coma Scale Eye Opening: To Voice [place] Coma Scale Verbal: Incomprehensible - Garbled [place] Coma Scale Motor: Localizes to Pain [place] Coma Scale Total: 10 Speech: Other - Garbled - Psychological Associated symptoms: Normal affect, Normal mood - Skin Skin Temperature: Cool Skin Moisture: Dry Skin Color: Normal Course - Re-evaluation Re-evalutation: 05/23/19 00:45 Patient was noted to have a decrease in his O2 saturations while in CAT scan. Patient's CAT scan of the head was also significant for evidence of intracranial hemorrhage. Patient's current GCS is 6. Plan is to bring the patient back to the emergency department, intubated, and contact [facility] for transfer reason being intracranial hemorrhage. - Laboratory Result Diagrams: 05/22/19 23:22 05/22/19 23:22 Laboratory results interpreted by me: 05/22/19 05/22/19 05/22/19 23:22 23:22 23:50 WBC 22.3 H Seg Neuts % (Manual) 84 H Lymphocytes % (Manual) 4 L Abs Neuts (Manual) 19.8 H Abs Monocytes (Manual) 1.6 H BUN 62 H Est GFR (MDRD) Non-Af 58 L Glucose 120 H AST 120 H ALT 54 H Creatine Kinase 4715 H Urine Ketones TRACE H Urine Blood SMALL H - EKG Interpretation by Me Additional EKG results interpreted by me: 05/23/19 00:58 EKG obtained on 05/22/2019 at 2334 hrs. was interpreted by this MD. Findings sinus tachycardia, rate 108, P waves preceding QRS complexes, QRS complexes appe ar narrow, there are no obvious patterns of ST segment elevation or depression present to suggest acute myocardial ischemia or infarction. Impression: Sinus tachycardia with nonspecific ST segments. - Consults [facility] ON BEHALF OF DR. LEBLANC Time consulted: 00:32 - CHARITY SLABBING MACHINE OPERATOR ACCEPTED PT ON BEHALF OF DR. LEBLANC. SHE RECOMMENDED TXA, KEPPRA AND MANNITOL Reason for consultation: 05/23/19 00:56 [facility] Procedures - Intubation Orotracheal Time of Intubation: 00:33 - gcs 6, dropping O2 sats Airway evaluation: Other - rigid cervical collar in place Mallampati Classification: Class 3 Medications: Etomidate, Succinylcholine Intubation method: Orotracheal Blade type: Monk Blade size: 4 Equipment used: Glidescope ETT size: 8.0 ETT secured at (cm): 24 Breath Sounds after Intubation: Equal End tidal CO2 confirmed: Yes Post Intubation Xray: Yes Intubation Complications: No complications Critical Care Note - Critical Care Note Total time excluding time spent on procedures (mins): 120 Discharge - Discharge Clinical Impression: Intraparenchymal hemorrhage of brain Condition: Critical Disposition: [facility] Referrals: FLAQUITO CARBALLO, KATHERINE [Primary Care Provider] - Follow up as needed I personally performed the services described in the documentation, reviewed and edited the documentation which was dictated to the scribe in my presence, and it accurately records my words and actions.
[2019-05-23] MEDS ORDERED: MANNITOL 500 ML IV ONE (01:02)
--- NOTE | 2019-05-23 01:18 | RADIOLOGY REPORT (SQ) ---
EXAM DESCRIPTION: CT THORACIC SPINE WITHOUT IV CONTRAST COMPLETED DATE/TME: 05/23/2019 00:00 CLINICAL HISTORY: 69 years, Male, FALL, BACK PAIN/TENDERNESS COMPARISON: None. TECHNIQUE: Axial CT images of the thoracic spine were obtained without contrast. Sagittal and coronal reformats were performed. DL [id number] Images stored on PACS. All CT scanners at this facility use dose modulation, iterative reconstruction, and/or weight based dosing when appropriate to reduce radiation dose to as low as reasonably achievable (ALARA). [facility]: Dose Right [facility]: CareDose [facility]: Dose Right [facility]: Teradose 4D [facility]: [place] LIMITATIONS: None. FINDINGS: The alignment of the thoracic spine is satisfactory. There is no acute fracture or subluxation. There is mild chronic anterior wedging of T12 and L1 with vacuum disc phenomenon and anterior osteophyte at T11-T12 and T12-L1. The remainder of the actual heights are maintained. There is multilevel spondylosis with small anterior osteophytes. The paraspinal soft tissues are unremarkable. The visualized portions of the lungs are clear except for some subsegmental atelectasis. IMPRESSION: No acute fracture or subluxation involving the thoracic spine. Mild chronic anterior wedging of the T12 and L1 vertebral bodies. TECHNICAL DOCUMENTATION: Quality ID # 436: Final reports with documentation of one or more dose reduction techniques (e.g., Automated exposure control, adjustment of the mA and/or kV according to patient size, use of iterative reconstruction technique) copyright 2011 [employer]- All Rights Reserved
--- NOTE | 2019-05-23 01:22 | RADIOLOGY REPORT (SQ) ---
EXAM DESCRIPTION: CT LUMBAR SPINE WITHOUT IV CONTRAST COMPLETED DATE/TME: 05/23/2019 00:00 CLINICAL HISTORY: 69 years, Male, FALL, BACK PAIN/TENDERNESS (SACRUM ALSO) COMPARISON: None. TECHNIQUE: Axial CT images of the lumbar spine were obtained without contrast. Sagittal and coronal reformats were performed. DLP 1928 Images stored on PACS. All CT scanners at this facility use dose modulation, iterative reconstruction, and/or weight based dosing when appropriate to reduce radiation dose to as low as reasonably achievable (ALARA). [facility]: Dose Right [facility]: CareDose [facility]: Dose Right [facility]: Teradose 4D [facility]: [employer] LIMITATIONS: None. FINDINGS: The alignment of the lumbar spine is satisfactory. No paraspinal soft tissue swelling. There is no acute fracture or subluxation. There is mild chronic anterior wedging of the T12 and L1 vertebral bodies. There is multilevel spondylosis, worst at L4-L5 and L5-S1 with disc space narrowing, endplate sclerosis and marginal osteophytes. There is severe bilateral neural foraminal narrowing at L5-S1. There are atherosclerotic calcifications of the abdominal aorta. The urinary bladder is distended with a Lassiter catheter in place. IMPRESSION: No acute fracture or subluxation involving the lumbar spine. TECHNICAL DOCUMENTATION: Quality ID # 436: Final reports with documentation of one or more dose reduction techniques (e.g., Automated exposure control, adjustment of the mA and/or kV according to patient size, use of iterative reconstruction technique) copyright 2011 [employer]- All Rights Reserved
--- NOTE | 2019-05-23 01:54 | RADIOLOGY REPORT (SQ) ---
EXAM DESCRIPTION: XR KNEE 4 OR MORE VIEWS COMPLETED DATE/TME: 05/22/2019 23:38 CLINICAL HISTORY: 69 years, Male, fall, left knee ecchymosis COMPARISON: None. NUMBER OF VIEWS: TECHNIQUE: LIMITATIONS: None. FINDINGS: 4 views of the left knee were obtained. No fracture or dislocation. No evidence of knee joint effusion. There are mild degenerative changes. There is atherosclerotic arterial calcification. IMPRESSION: No fracture or dislocation. Other findings as described. copyright 2010 [employer]- All Rights Reserved
--- NOTE | 2019-05-23 01:55 | RADIOLOGY REPORT (SQ) ---
EXAM DESCRIPTION: XR CHEST 1 VIEW COMPLETED DATE/TME: 05/22/2019 23:35 CLINICAL HISTORY: 69 years, Male, POST INTUBATION COMPARISON: None. NUMBER OF VIEWS: Single TECHNIQUE: LIMITATIONS: None. FINDINGS: Cardiomediastinal silhouette is enlarged. Lungs are grossly clear. No effusion. No pneumothorax. Endotracheal tube and nasogastric tube are both in good position IMPRESSION: Lungs grossly clear. Supportive appliances in good position copyright 2011 [employer]- All Rights Reserved
--- NOTE | 2019-05-23 02:19 | RADIOLOGY REPORT (SQ) ---
EXAM DESCRIPTION: CT CERVICAL SPINE WITHOUT IV CONTRAST COMPLETED DATE/TME: 05/22/2019 23:35 CLINICAL HISTORY: 69 years, Male, ams, fall, neck pain COMPARISON: None. TECHNIQUE: Images stored on PACS. All CT scanners at this facility use dose modulation, iterative reconstruction, and/or weight based dosing when appropriate to reduce radiation dose to as low as reasonably achievable (ALARA). [facility]: Dose Right [facility]: CareDose [facility]: Dose Right [facility]: Teradose 4D [facility]: [employer] LIMITATIONS: None. FINDINGS: No acute displaced fracture is identified. Uncovertebral and facet osteoarthritis. Vascular calcification is seen. Thyroid is heterogeneous. IMPRESSION: No acute displaced fracture of the cervical spine. Osteoarthritis. Carotid calcification. Brain dictated separately TECHNICAL DOCUMENTATION: Quality ID # 436: Final reports with documentation of one or more dose reduction techniques (e.g., Automated exposure control, adjustment of the mA and/or kV according to patient size, use of iterative reconstruction technique) copyright 2011 [employer]- All Rights Reserved
[2019-05-23 04:03] VITALS: BP 131/78
[2019-05-23 08:33] LABS: URINE COCAINE SCREEN NEGATIVE
--- NOTE | 2019-05-23 09:51 | EKG REPORT ---
SEVERITY:- ABNORMAL ECG - SINUS TACHYCARDIA PROBABLE LEFT ATRIAL ABNORMALITY LVH WITH SECONDARY REPOLARIZATION ABNORMALITY ST DEPRESSION, CONSIDER ISCHEMIA, ANT-LAT LDS : Confirmed by: Sidney Fisher MD 23-May-2019 09:51:00
[2019-05-23] MEDS ORDERED: SUCCINYLCHOLINE CHLORIDE INJ 200 MG/10 ML VIAL ONE (12:05)
== END 2019-05-23 01:09 | disposition short-term general hospital (02) ==
LOC: ER 23:02
DX: I61.9 Nontraumatic intracerebral hemorrhage, unspecified (principal); R47.89 Other speech disturbances; R42 Dizziness and giddiness; I10 Essential (primary) hypertension; S31.811A Laceration without foreign body of right buttock, initial encounter; S30.0XXA Contusion of lower back and pelvis, initial encounter; S20.229A Contusion of unspecified back wall of thorax, initial encounter; M54.2 Cervicalgia; W18.2XXA Fall in (into) shower or empty bathtub, initial encounter; R00.0 Tachycardia, unspecified; R05 Cough; R09.89 Other specified symptoms and signs involving the circulatory and respiratory systems; Z88.2 Allergy status to sulfonamides
CPT/HCPCS: 93005; 99291; 99292; 96361; 96374; 96375; 36415; 82962; 80307 ×2; 82550; 85025; 80053; 81001; 84484; 71045; 73564; 70450; 72125; 72128; 72131; 94660; 93010; 31500; J3490 ×3; J2150; J2060; J0330; J7030 ×2; J1953